=== PATIENT | male | born 1985 | race Caucasian/White ===

== ENCOUNTER → 2018-08-07 13:35 | Outpatient (CLI) | payer OTHER, SELFPAY ==
[2018-08-07 15:33] LABS: Liquefaction Semen YES (YES); PH Semen 8 (7-8); Sperm Morphology 76 %ABNORM (0-30); Sperm Motility 25% % Motile; Volume Semen 4.5 (1.0-5.0)
[2018-08-07 15:34] LABS: Sperm Count 6 x10^6/mL (20-150)
== END ==
PROVIDERS: Visit Provider Specialist
DX: N46.9 Male infertility, unspecified (principal)
CPT/HCPCS: 89320